=== PATIENT | female | born 1990 | race Caucasian/White ===

== ENCOUNTER 2021-08-20 16:46 | Emergency (ER) | payer OTHER, SELFPAY ==
[2021-08-20 16:48] VITALS: BP 105/71; PULSE 81; RESP 16; TEMP 36.4; O2SAT 98; BMI 18.3
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
--- NOTE | 2021-08-20 18:27 | ED.RN ---
Sling in place with home care instructions, Cap refill brisk.
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
[2021-08-20] MEDS: traMADol 50 MG Tablet PO (18:45)
== END 2021-08-20 18:50 | disposition home or self-care (01) ==
PROVIDERS: Emergency Provider Emergency Medicine; PCP Family Medicine
DX: S42.001A Fracture of unspecified part of right clavicle, initial encounter for closed fracture (principal); S90.32XA Contusion of left foot, initial encounter; V19.9XXA Pedal cyclist (driver) (passenger) injured in unspecified traffic accident, initial encounter; Y93.55 Activity, bike riding; Y92.9 Unspecified place or not applicable
CPT/HCPCS: 73030; 73630; 99283

== ENCOUNTER 2023-03-17 00:01 | Emergency (ER) | payer OTHER, SELFPAY ==
[2023-03-17 00:02] VITALS: BP 113/70; PULSE 100; RESP 16; TEMP 36.8; O2SAT 99; BMI 17.9
--- NOTE | 2023-03-17 00:29 | CT_ITS ---
INDICATION: head injury EXAMINATION: CT Head or Brain W/O Contrast Injection TECHNIQUE: Multiple axial images were obtained of the head without intravenous contrast. A radiation dose optimization technique was used for this scan. IV Contrast dosage and agent: None. COMPARISON: None FINDINGS: BRAIN PARENCHYMA: No intra- or extra-axial hemorrhage. No evidence of acute major territorial infarct. No intracranial mass or mass effect. There is preservation of the hogdson/white matter interface. Posterior fossa structures are unremarkable. CSF SPACES: Appropriate for age. No hydrocephalus. Basal cisterns are patent. CALVARIUM, SKULL BASE, PARANASAL SINUSES AND MASTOID AIR CELLS: Calvarium is intact. Opacification left maxillary sinus, bilateral frontal sinuses and anterior ethmoid air cells. Partial opacification right maxillary sinus and bilateral sphenoid sinuses. Partial opacification bilateral mastoid air cells. ORBITS: No acute findings, as visualized. CT/Brain/Head without Contrast IMPRESSION: No evidence of acute intracranial abnormality. Pansinusitis with bilateral mastoid effusions. Electronically Signed: Aquiles Schmidt MD at 2:08 EDT ,
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
[2023-03-17 02:22] VITALS: RESP 18
== END 2023-03-17 02:22 | disposition home or self-care (01) ==
PROVIDERS: Emergency Provider Emergency Medicine; PCP Family Medicine; Visit Provider Emergency Medicine
DX: S09.90XA Unspecified injury of head, initial encounter (principal); J32.4 Chronic pansinusitis; W22.8XXA Striking against or struck by other objects, initial encounter
CPT/HCPCS: 70450; 99284

== ENCOUNTER → 2024-02-05 | Outpatient (CLI) | payer SELFPAY, OTHER ==
--- NOTE | 2024-02-05 13:50 | BI_ITS ---
MAMMOGRAPHY - BILATERAL DIAGNOSTIC REASON FOR EXAM: Female, 33 years old. Palpable lump in the upper lateral aspect of the right breast. PERTINENT HISTORY: Non-contributory. TECHNIQUE: Digital bilateral breast klaudia (3D mammographic acquisition) in the CC and MLO projections. 2-D mediolateral oblique (MLO) and craniocaudad (CC) views of both breasts were obtained. CAD: Full Field Digital Mammography with Computer Added Detection was performed. COMPARISON: None. FINDINGS: Breast Composition: The breasts are extremely dense, which lowers the sensitivity of mammography. There are no dominant masses or suspicious calcifications. No other significant abnormalities are identified. BI/DIAG MAMM W/CAD, BILAT IMPRESSION: Negative diagnostic mammogram. With the patient''s history of a palpable lump in the upper lateral aspect of the right breast, correlation with ultrasound is recommended. ASSESSMENT CATEGORY: BIRADS Category 0: Incomplete. Need additional imaging evaluation. A letter regarding these results will be sent to the patient by the facility within 30 days. Approximately 10% of breast cancers are not detected by mammography. A normal mammogram should not delay biopsy of a clinically suspicious abnormality. Electronically Signed: Louis Silver MD at 14:39 EDT ,
--- NOTE | 2024-02-05 13:50 | US_ITS ---
STUDY: ULTRASOUND BREAST - RIGHT REASON FOR EXAM: Female, 33 years old. Palpable lump in the right breast. TECHNIQUE: Axial and longitudinal images of the RIGHT breast were performed with a high resolution ultrasound transducer. # OF IMAGES: 19 COMPARISON: Comparison is made with prior mammogram done earlier in the day. FINDINGS: RIGHT Breast: The upper outer quadrant of the breast was examined with ultrasound. There is dense fibroglandular tissue. No sonographic abnormality is seen. US/Breast Limited Unilateral IMPRESSION: No sonographic abnormality is seen. ASSESSMENT CATEGORY: BIRADS Category 1: Negative. A letter regarding these results will be sent to the patient by the facility within 30 days. Electronically Signed: Louis Silver MD at 12:27 EDT ,
--- OUTSIDE RECORDS SUMMARY | 2024-02-05 18:35 | XMS RPT_ITS | CCD ---
Author Name Unknown Address [address] [place] [address] Organization [facility] Care Team Providers Care Cloth Opener Hand Name Role Phone LILLIAM GARCIA NP Admitting Unavailable LILLIAM GARCIA NP Attending Unavailable LILLIAM GARCIA NP Primary Care Unavailable LILLIAM GARCIA NP Attending Unavailable LILLIAM GARCIA NP Primary Care Unavailable LILLIAM GARCIA NP Admitting Unavailable Jayy LONGORIA MD Unavailable Rula Gutierrez RN Unavailable Unavailable RADHA EARL-LILLIAM SO Unavailable [phone] Ani Garcia Unavailable Unavailable Piedad GARCIA MD Unavailable Jazmin Simmons Unavailable Unavailable GEOVANNY STERLING Unavailable Unavailable Julianne Smallwood RN Unavailable Unavailable Unavailable Unavailable Medications Current Medications Medication Drug Class(es) Dates Sig (Normalized) Sig (Original) [id number] 200 actuat albuterol 0.09 mg/actuat metered dose inhaler (2 sources) beta2-Adrenergic Agonist Start: 02-18-2022 take 2 ug by inhalation every six hours as needed for wheezing Ventolin HFA 108 (90 Base) MCG/ACT Inhalation Aerosol Solution ; 2 (two) inhalations every 6 hours prn wheezing for 30 days Quantity: 1 {Each} Refills: 1 Ordered: 18-Feb-2022 MD Piedad GARCIA Start: 18-Feb-2022 Comments: 1 HFA Completed/Discontinued Medications Medication Drug Class(es) Dates Sig (Normalized) Sig (Original) amoxicillin 500 mg oral capsule (2 sources) Penicillin-class Antibacterial Start: 02-18-2022 End: 02-28-2022 take 1 tablet by mouth three times daily Amoxicillin 500 MG Oral Capsule ; 1 (one) Tablet three times daily for 10 days Quantity: 30 {Capsule} Refills: 0 Ordered: 20-May-2023 MD Piedad GARCIA Start: 18-Feb-2022 End: 28-Feb-2022 Status: Inactive Comments: medication to be dispensed in office Problems Active Problems Problem Classification Problem Date Documented Da te Episodic/Chronic Abdominal pain (10 sources) Generalized abdominal pain; Translations: [Generalized abdominal pain] 10-22-2023 Episodic Past or Other Problems Problem Classification Problem Date Documented Da te Episodic/Chronic Unclassified (2 sources) !Patient notification of lab results - Lilliam Garcia [facility]-. The test(s) that you had done were/was a CT scan. Note for !Patient notification of lab results : Alessandra- Your CT scan showed some ovarian cysts, but no other signs of any concerning things in your abdomen. If your symptoms continue, you may want to schedule a visit with a hospice administrator to get these checked out. 10-16-2023 Unclassified (2 sources) !Patient notification of lab results - Lilliam Garcia [facility]-. The test(s) that you had done were/was a Lipase, a CBC (checks for anemia and infection) and a CMP (kidneys, liver, nutrition, sugar). Note for !Patient notification of lab results : Your CMP and Lipase showed no issues with liver or pancreas. Your CBC showed a mildly high neutrophil count which can indicate a recent infection or some type of stress on your body. I don't think it is anything to be worried about, but we can check that lab in 6 weeks again to make sure nothing has changed. You can call the office to set up an appointment for a lab draw. 10-14-2023 Unclassified (2 sources) Vomiting - Symptoms include nausea (at times), vomiting (intermittent) and abdominal pain (above the umbilicus), while symptoms do not include abdominal bloating or difficulty swallowing. Onset was 1 month(s) ago. Associated symptoms include fatigue (at times) and weakness, while associated symptoms do not include headache. Note for Vomiting : Has 5 boys 10-14-2023 Unclassified (2 sources) Sinusitis - The sinusitis has been occurring for 6 months. It is characterized as a pressure sensation. The pain is located in the frontal area. There has been associated cough, nasal stuffiness and runny nose, while there has been no dizziness, ear discharge, ear pain, eye pain, fatigue, fever, headache, muscle aches, neck pain, respiratory infection, sore throat or swollen lymph glands. 05-22-2023 Unclassified (2 sources) [ADDITIONAL REASON] Cough - The cough has been occurring for 2 months. The cough is characterized as moist. The symptoms have been associated with runny nose and wheezing, while the symptoms have not been associated with body aches, dyspnea, facial puffiness, fever or sore throat. 05-22-2023 Unclassified (2 sources) Ear pain - The onset of the ear pain has been acute and has been occurring for 5 days. It is both ears. The pain affects the internal ear. The ear pain is characterized as a sharp pain. There has been associated nasal congestion and nasal discharge/stuffy nose, while there has been no fever. Note for Ear pain : Pt. did have two asthma attacks on Thursday and did some chilling. That resolved. 02-18-2022 Unclassified (2 sources) sore throat - The sore throat has been occurring for 1 week. The symptoms have been associated with change in voice, cough and runny nose. Note for sore throat : Here for exam. 02-16-2017 Unclassified (2 sources) cough - The onset of the cough has been acute and has been occurring in a persistent pattern for 4 days. The cough is characterized as dry. The symptoms have been associated with sore throat (improved.). Note for cough : Leaving for [place] tomorrow.. 02-03-2013 Results Test Name Value Interpretation Reference Range Facil ity Vital Signs Date Time Vital Sign Value Performing Clinician Natalie khan 10-14-2023 09:14-0500 Body height 157.48 cm Rula Irwin [facility], [facility].; [facility]. 10-14-2023 09:14-0500 Body mass index (BMI) [Ratio] 17.1 kg/m2 Rula Gutierrez RN [facility].; [facility]. 10-14-2023 09:14-0500 Body surface area Derived from formula 1.38 m2 Rula Gutierrez RN [facility], [facility].; [facility]. 10-14-2023 09:14-0500 Body temperature 97.5 [degF] [facility]; [facility] Encounters Encounter Date Encounter Type Care Provider Facility Start: 10-16-2023 End: 10-16-2023 Historical Summary Jayy LONGORIA MD Work Phone: [facility] Start: 10-16-2023 End: 10-16-2023 Results Review Jayy LONGORIA MD Work Phone: [facility] Start: 10-16-2023 End: 10-16-2023 ambulatory LILLIAM RATE CLERK P[employer]ENGER [facility] Start: 10-14-2023 End: 10-14-2023 ambulatory LILLIAM RATE CLERK P[employer]ENGER [facility] Start: 10-14-2023 End: 10-14-2023 Patient encounter procedure Jayy LONGORIA MD Work Phone: [facility] Start: 10-14-2023 End: 10-22-2023 Historical Summary [facility] Start: 10-14-2023 End: 10-14-2023 Office outpatient visit 10 minutes [facility] Start: 05-22-2023 End: 05-22-2023 Office outpatient visit 10 minutes [facility] Start: 02-18-2022 End: 02-18-2022 Medication Refill/Order [facility] Start: 02-18-2022 End: 02-18-2022 Office outpatient visit 10 minutes Jay[facility] LONG[facility]IA [facility] Start: 02-16-2017 End: 02-16-2017 Medication Refill/Order [facility] Start: 02-16-2017 End: 02-16-2017 Office outpatient visit 15 minutes [facility] Start: 02-16-2017 End: 02-16-2017 Patient encounter status Jayy LONGORIA MD Work Phone: [facility] [employer]; [facility] [employer] [facility] [employer] Start: 07-16-2016 End: 07-16-2016 Lab Only Jay[facility]IA [facility] Start: 02-03-2013 End: 02-03-2013 Patient encounter procedure [facility] LONG[facility]IA [facility] Start: 01-01-2011 End: 01-01-2011 Historical Summary [facility] Patient encounter status Jayy DORAN MD Work Phone: [facility] [employer]; [place] [employer] [facility] [employer] Procedures Date Procedure Procedure Detail Performing Clinician Start: 10-16-2023 End: 10-16-2023 Ct abdomen & pelvis w/contrast material LILLIAM SANTOYOP-BC Work Phone: Start: 10-14-2023 End: 10-14-2023 CT of abdomen LILLIAM SANTOYOP-BC Work Phone: Plan of Treatment Date Care Activity Detail Author Start: 11-25-2023 Blood count complete auto&auto difrntl wbc CBC, PLATELETS & AUT DIFF (90612) Start: 25-Nov-2023 Request [employer]; [employer] [facility] [employer] Start: 02-16-2017 Removal impacted cerumen irrigation/lvg unilat CERUMEN REMOVAL USING IRRIGATION/LAVAGE ([id number]) Start: 16-Feb-2017 [facility] Social History Date Type Detail Facility Alcohol Use: Alcohol Use: ; N o Alcohol Use. [facility]; [facility], [facility] Current Work/Study Status Current Work/St udy Status [facility]; [facility] Highest Education Le clive Attained: Highest Education Level Attained: ; Less than high school. [facility]; [facility] Tobacco use: Tobacco use: ; N ever smoker. [facility]; [facility] Work Phone: [facility] smoked tobacco [facility] Work Phone: Less than [facility] Work Phone: Summary Purpose Family History Brother (s) Status:Active Comments:3. Father Status:Active Comments:. 1957 Mother Status:Active Comments:. 1961 Sister (s) Status:Active Comments:0. Brother (s) Status:Active Comments:3. Father Status:Active Comments:1957 Mother Status:Active Comments:. 1961 Sister (s) Status:Active Comments:0. Advance Directives No Advanced Directives Records Found Additional Source Comments INFORMATION SOURCE (unrecogn ized section and content) FOR RECORDS PERTAINING TO PATIENTS WHO ARE OR HAVE BEEN ENROLLED IN A CHEMICAL DEPENDENCY/SUBSTANCEABUSE PROGRAM, SOME INFORMATION MAY BE OMITTED. This clinical summary was aggregated from multiple sources. Caution should be exercised in using it in the provision of clinical care. This summary normalizes information from multiple sources, and as a consequence, information in this document may materially change the coding, format and clinical context of patient data. In addition, data may be omitted in some cases. CLINICAL DECISIONS SHOULD BE BASED ON THE PRIMARY CLINICAL RECORDS. [email or web address] provides no warranty or guarantee of the accuracy or completeness of information in this document.
== END | disposition home or self-care (01) ==
LOC: OPBI 13:47
PROVIDERS: PCP Family Medicine; Referring Provider Advanced Practice Midwife; Visit Provider Advanced Practice Midwife
DX: N63.11 Unspecified lump in the right breast, upper outer quadrant (principal)
CPT/HCPCS: 76642; 77062; 77066; G0279